=== PATIENT | male | born 1950 | race African-American/Black ===

== ENCOUNTER 2024-11-26 13:31 | Inpatient (IN) | payer OTHER, MEDICARE ==
[~2024-11-26] VITALS: Ht 177.8 cm; Wt 74.0 kg
[2024-11-26 13:45] VITALS: O2SAT 98
[2024-11-26 14:39] LABS: CLARITY URINE Clear (CLEAR); COLOR URINE YELLOW (YELLOW); LEUKOCYTE ESTERASE URINE TRACE (NEGATIVE); NITRITE URINE POSITIVE (NEGATIVE); OCCULT BLOOD URINE 2+ (NEGATIVE)
[2024-11-26 14:51] LABS: HEMATOCRIT. 48.6 % (42.0-52.0); HEMOGLOBIN. 16.0 g/dL (14.0-18.0); MEAN PLATELET VOLUME 9.7 fl (7.4-10.4); PLATELET 101 x1000/uL (130-400); RED BLOOD CELL COUNT 5.51 mill/uL (4.7-6.1); RED CELL DISTRIBUTION WIDTH 17.0 % (11.6-14.6)
[2024-11-26 15:09] LABS: CREATININE 1.7 mg/dL (0.6-1.3); UREA NITROGEN BLOOD 13 mg/dL (9-23)
[2024-11-26 15:10] LABS: ASPARTATE AMINOTRANSFERASE 20 IU/L (<34)
[2024-11-26 15:11] LABS: BILIRUBIN DIRECT 0.5 mg/dL (<=3.0); BILIRUBIN TOTAL 1.6 mg/dL (0.1-1.0); PROTEIN TOTAL 7.8 g/dL (6.0-8.3); TROPONIN I HIGH SENSITIVITY 12 ng/L (3.0-53)
[2024-11-26 15:23] LABS: BAND% 4.0 % (1.0-6.0); LYMPHOCYTES % MANUAL 6.0 % (20.0-50.0); MONOCYTES % MANUAL 14.0 % (2.0-8.0); NEUTROPHILS % MANUAL 76.0 % (45.0-75.0)
[2024-11-26 15:24] LABS: PLATELET ESTIMATE SLIGHTLY DECREASED
[2024-11-26] MEDS: CEFTRIAXONE 1GM/50ML 50 ML IV ONE (15:45)
[2024-11-26] MEDS ORDERED: MAGNESIUM/ALUMINUM HYDROXIDE/SIMETHICONE 30ML UDC PO PRN (17:30)
[2024-11-26] MEDS ORDERED: IPRATROPIUM/ALBUTEROL 0.5-3(2.5)MG/3ML NEB HHN PRN (17:30)
[2024-11-26] MEDS ORDERED: ONDANSETRON HCL 4MG/2ML INJ IV PRN (17:30)
[2024-11-26] MEDS ORDERED: HYDROCODONE/ACETAMINOPHEN 5/325MG TABLET PO PRN (17:30)
[2024-11-26] MEDS ORDERED: NA PHOS,M-B/NA PHOS,DI-BA ENEMA 118ML PR PRN (17:30)
[2024-11-26] MEDS ORDERED: ACETAMINOPHEN 325MG TABLET PO PRN ×2 (17:30)
[2024-11-26] MEDS ORDERED: CLONIDINE 0.1MG TABLET PO PRN (17:30)
[2024-11-26] MEDS ORDERED: DEXTROSE 50% WATER 50ML SYRINGE IV PRN (17:30)
[2024-11-26] MEDS ORDERED: GUAIFENESIN 200MG/10ML SUGAR FREE UDC PO PRN (17:30)
[2024-11-26] MEDS ORDERED: ENOXAPARIN 100MG/ML SYR SUBCUT SCH (18:00)
[2024-11-26] MEDS ORDERED: SODIUM CHLORIDE 0.9% 1,000 ML IV SCH (18:00)
[2024-11-26] MEDS ORDERED: NALOXONE HCL 0.4MG/ML VIAL IV PRN (18:00)
[2024-11-26] MEDS ORDERED: SODIUM CHLORIDE 0.9% 1,000 ML IV ONE (18:15)
[2024-11-26 19:58] LABS: INR 1.4
[2024-11-26 19:59] LABS: PHOSPHORUS 4.0 mg/dL (2.5-4.9)
[2024-11-26 20:11] LABS: FOLIC ACID (FOLATE) SERUM > 20.00 ng/mL (>5.38); VITAMIN B12 SERUM 1713 pg/mL (211-911)
[2024-11-26] MEDS: BLOOD SUGAR DIAGNOSTIC STRIP TEST SCH (21:00)
[2024-11-26 21:28] LABS: INR 1.3
[2024-11-26 21:42] VITALS: BP 124/66; PULSE 80; RESP 18; TEMP 36.418
[2024-11-26] MEDS: CARVEDILOL 12.5MG TABLET PO SCH (22:40)
[2024-11-26] MEDS: TERAZOSIN HCL 5MG CAPSULE PO SCH (22:45)
[2024-11-26] MEDS: INSULIN LISPRO 100 UNITS/ML SUBCUT SCH (22:46)
[2024-11-26] MEDS: INSULIN GLARGINE 100 UNITS/ML SUBCUT NR (22:47)
[2024-11-27 00:39] LABS: TROPONIN I HIGH SENSITIVITY 25 ng/L (3.0-53)
[2024-11-27 01:27] LABS: HEPATITIS C AB NON REACTIVE (Neg) (Negative)
[2024-11-27] MEDS: ENOXAPARIN 80MG/0.8ML SYR SUBCUT SCH (06:30)
[2024-11-27 07:18] LABS: HEMATOCRIT. 46.3 % (42.0-52.0); HEMOGLOBIN. 15.3 g/dL (14.0-18.0); MEAN PLATELET VOLUME 10.4 fl (7.4-10.4); PLATELET 87 x1000/uL (130-400); RED BLOOD CELL COUNT 5.25 mill/uL (4.7-6.1); RED CELL DISTRIBUTION WIDTH 16.7 % (11.6-14.6)
[2024-11-27 07:26] LABS: TROPONIN I HIGH SENSITIVITY 24.0 ng/L (3.0-53)
[2024-11-27 07:28] LABS: CREATININE 1.6 mg/dL (0.6-1.3); TRIGLYCERIDE 76.0 mg/dL (0-150); UREA NITROGEN BLOOD 19.0 mg/dL (9-23)
[2024-11-27 07:29] LABS: LDL CHOLESTEROL 32.0 mg/dL (5-100)
[2024-11-27 07:31] LABS: T4 FREE 1.03 ng/dL (0.89-1.76)
[2024-11-27 08:00] VITALS: BP 111/69; PULSE 109; RESP 18; TEMP 36.7; O2SAT 92
[2024-11-27] MEDS ORDERED: FAMOTIDINE 20MG/2ML VIAL IV SCH (09:00)
[2024-11-27] MEDS ORDERED: TAMSULOSIN HCL 0.4MG SR CAPSULE PO SCH (09:00)
[2024-11-27] MEDS ORDERED: ENOXAPARIN 40MG/0.4ML SYR SUBCUT SCH (09:00)
[2024-11-27] MEDS: FAMOTIDINE 20MG/2ML VIAL IV SCH (09:36)
[2024-11-27] MEDS: LISINOPRIL 20MG TABLET PO SCH (09:37)
[2024-11-27] MEDS: EMPAGLIFLOZIN 25MG TABLET PO SCH (09:37)
[2024-11-27] MEDS: INSULIN GLARGINE 100 UNITS/ML SUBCUT SCH (11:05)
[2024-11-27 12:00] VITALS: BP 112/57; PULSE 65; RESP 20; TEMP 36.3; O2SAT 95
[2024-11-27 13:14] LABS: BAND% 25.0 % (1.0-6.0); LYMPHOCYTES % MANUAL 5.0 % (20.0-50.0); MONOCYTES % MANUAL 13.0 % (2.0-8.0); NEUTROPHILS % MANUAL 57.0 % (45.0-75.0); PLATELET ESTIMATE DECREASED
[2024-11-27 16:00] VITALS: BP 114/74; PULSE 90; RESP 20; TEMP 36.7
[2024-11-27] MEDS ORDERED: CEFTRIAXONE 1GM/50ML 50 ML IV SCH (16:00)
[2024-11-27] MEDS: CEFTRIAXONE 1GM/50ML 50 ML IV SCH (16:46)
[2024-11-27 20:00] VITALS: BP 120/68; PULSE 83; RESP 19; TEMP 36.6; O2SAT 93
[2024-11-28] VITALS: BP 115/68; PULSE 66; RESP 18; TEMP 36.4; O2SAT 93
[2024-11-28 04:00] VITALS: BP 126/80; PULSE 87; RESP 19; TEMP 36.6; O2SAT 95
[2024-11-28 08:00] VITALS: BP 110/72; PULSE 97; RESP 20; TEMP 36.1; O2SAT 99
[2024-11-28 12:00] VITALS: BP 133/93; PULSE 80; RESP 20; TEMP 36.3
[2024-11-28 14:15] LABS: CLARITY URINE CLEAR (CLEAR); COLOR URINE YELLOW (YELLOW); GLUCOSE URINE 3+ (NEGATIVE); KETONES URINE TRACE (NEGATIVE); LEUKOCYTE ESTERASE URINE NEGATIVE (NEGATIVE); NITRITE URINE NEGATIVE (NEGATIVE); OCCULT BLOOD URINE 3+ (NEGATIVE); PH URINE 5.5 (4.5-8.0); PROTEIN URINE TRACE (NEGATIVE); SPECIFIC GRAVITY URINE 1.018 (1.005-1.030); UROBILINOGEN URINE 0.2 E.U./dL (0.2-1.0)
[2024-11-28 14:35] LABS: SQUAMOUS EPITHELIAL CELL URINE NONE SEEN /lpf (RARE/1+)
[2024-11-28 14:36] LABS: BACTERIA URINE TRACE; RBC URINE 0-2 /hpf (0-2); WBC URINE 0-2 /hpf (0-2)
[2024-11-28 16:00] VITALS: BP 118/81; PULSE 85; RESP 18; TEMP 36.6; O2SAT 100
[2024-11-28 19:38] VITALS: BP 118/81; PULSE 83; RESP 18; TEMP 97.9
[2024-11-28] MEDS ORDERED: TAMS-54 PO (22:31)
== END 2024-11-28 19:50 | disposition home or self-care (01) | DRG 871 ==
LOC: ER 14:04 → 8EST 16:36 → EDBEDREQ 19:06 → ENRESERV 19:54
PROVIDERS: ADMIT Internal Medicine; ATTEND Internal Medicine
DX: A41.9 Sepsis, unspecified organism (principal); N17.0 Acute kidney failure with tubular necrosis; I50.22 Chronic systolic (congestive) heart failure; N39.0 Urinary tract infection, site not specified; I16.9 Hypertensive crisis, unspecified; E11.9 Type 2 diabetes mellitus without complications; I11.0 Hypertensive heart disease with heart failure; D69.6 Thrombocytopenia, unspecified; K76.9 Liver disease, unspecified; N40.0 Benign prostatic hyperplasia without lower urinary tract symptoms; E78.00 Pure hypercholesterolemia, unspecified; I48.0 Paroxysmal atrial fibrillation; Z79.4 Long term (current) use of insulin; Z86.73 Personal history of transient ischemic attack (TIA), and cerebral infarction without residual deficits
CPT/HCPCS: 36415; 71045; 76705; 76770; 80048; 80061; 80076; 81003; 82550; 82607; 82746; 82962; 83036; 83605; 83735; 83930; 84100; 84439; 84443; 84484; 85025; 86705; 87340; 93005; 99291; J0696; J1308; J1650; J1815